=== PATIENT | female | born 1975 | race African-American/Black ===

== ENCOUNTER 2020-12-16 15:00 | Emergency (ER) | payer SELFPAY ==
[~2020-12-16] VITALS: Ht 172.7 cm; Wt 91.0 kg
[2020-12-16] MEDS ORDERED: HALOPERIDOL LACTATE 5MG/ML VIAL IM STA ×2 (16:06→17:23)
[2020-12-16] MEDS ORDERED: LORAZEPAM 2MG/ML CPJ IM STA ×2 (16:06→17:23)
[2020-12-16 18:05] LABS: CHLORIDE 112 mEq/L (98-107)
[2020-12-16 18:06] LABS: BASOPHILS % 0.5 % (0.0-2.0); HEMATOCRIT. 36.7 % (36.0-48.0); HEMOGLOBIN. 12.5 g/dL (12.0-16.0); LYMPHOCYTES % 21.9 % (20.0-50.0); MEAN CORPUSCULAR HEMOGLOBIN 30.9 pg (28.0-32.0); MEAN CORPUSCULAR VOLUME 91.3 fL (81.0-99.0); MEAN PLATELET VOLUME 8.9 fl (7.4-10.4); MONOCYTES % 8.3 % (2.0-8.0); NEUTROPHILS % 69.3 % (40.0-76.0); PLATELET 291 x1000/uL (130-400); RED BLOOD CELL COUNT 4.03 mill/uL (4.2-5.4); RED CELL DISTRIBUTION WIDTH 13.7 % (11.6-14.6)
[2020-12-16 18:08] LABS: ETHANOL BLOOD < 10 mg/dL
[2020-12-16 19:06] LABS: CLARITY URINE CLEAR (CLEAR); COLOR URINE DARK YELLOW (YELLOW); KETONES URINE 4+ (NEGATIVE); LEUKOCYTE ESTERASE URINE TRACE (NEGATIVE); NITRITE URINE NEGATIVE (NEGATIVE); OCCULT BLOOD URINE NEGATIVE (NEGATIVE); PROTEIN URINE 3+ (NEGATIVE); SPECIFIC GRAVITY URINE 1.037 (1.005-1.030)
[2020-12-16 19:21] LABS: *AMPHETAMINES SCREEN URINE NEGATIVE (NEGATIVE); METHADONE URINE SCREEN NEGATIVE (NEGATIVE); OPIATES URINE SCREEN NEGATIVE (NEGATIVE); PHENCYCLIDINE URINE SCREEN NEGATIVE (NEGATIVE)
[2020-12-16 19:22] LABS: *BARBITURATES SCREEN URINE NEGATIVE (NEGATIVE); *BENZODIAZEPINES SCREEN URINE NEGATIVE (NEGATIVE); *COCAINE SCREEN URINE NEGATIVE (NEGATIVE)
[2020-12-16 19:35] LABS: CANNABINOID URINE SCREEN PRESUMTIVE POSITIVE (NEGATIVE)
[2020-12-17 09:48] VITALS: BP 134/85
== END 2020-12-17 09:57 | disposition home or self-care (01) ==
LOC: EDBD 15:05 → ER 15:05
DX: G93.40 Encephalopathy, unspecified (principal); T40.7X1A Poisoning by cannabis (derivatives), accidental (unintentional), initial encounter; Y92.9 Unspecified place or not applicable
CPT/HCPCS: 36415; 80053; 80305; 80307; 80320; 80329; 81003; 85025; 93005; 96372; 99285; J1630; J2060; Z7610; G0480

== ENCOUNTER 2022-03-12 07:19 | Emergency (ER) | payer MEDICAID, MEDICARE ==
[~2022-03-12] VITALS: Ht 167.6 cm; Wt 73.0 kg
[2022-03-12 08:30] LABS: BASOPHILS % 0.7 % (0.0-2.0); EOSINOPHILS % 0.3 % (0.0-5.0); HEMATOCRIT. 36.8 % (36.0-48.0); LYMPHOCYTES % 22.6 % (20.0-50.0); MEAN CORPUSCULAR HEMOGLOBIN 29.7 pg (28.0-32.0); MEAN CORPUSCULAR VOLUME 91.2 fL (81.0-99.0); MONOCYTES % 7.3 % (2.0-8.0); NEUTROPHILS % 69.1 % (40.0-76.0); PLATELET 259 x1000/uL (130-400); RED BLOOD CELL COUNT 4.03 mill/uL (4.2-5.4); RED CELL DISTRIBUTION WIDTH 14.1 % (11.6-14.6)
[2022-03-12 08:35] LABS: CHLORIDE 108 mEq/L (98-107)
[2022-03-12 08:42] LABS: ETHANOL BLOOD < 10 mg/dL
[2022-03-12] MEDS ORDERED: OLANZAPINE 10 MG/VIAL IM ONE ×2 (08:45→16:00)
[2022-03-12] MEDS ORDERED: MIDAZOLAM HCL 2 MG/2 ML VIAL IM ONE ×3 (08:45→20:00)
[2022-03-12 15:37] LABS: CLARITY URINE CLEAR (CLEAR); COLOR URINE DARK YELLOW (YELLOW); KETONES URINE 2+ (NEGATIVE); LEUKOCYTE ESTERASE URINE NEGATIVE (NEGATIVE); NITRITE URINE NEGATIVE (NEGATIVE); OCCULT BLOOD URINE NEGATIVE (NEGATIVE); PH URINE 5.5 (4.5-8.0); PROTEIN URINE 2+ (NEGATIVE); SPECIFIC GRAVITY URINE 1.034 (1.005-1.030); UROBILINOGEN URINE 0.2 E.U./dL (0.2-1.0)
[2022-03-12] MEDS ORDERED: DIPHENHYDRAMINE 50MG/ML VIAL IM ONE (16:00)
[2022-03-12 16:14] LABS: *AMPHETAMINES SCREEN URINE NEGATIVE (NEGATIVE); *BARBITURATES SCREEN URINE NEGATIVE (NEGATIVE); *COCAINE SCREEN URINE NEGATIVE (NEGATIVE); METHADONE URINE SCREEN NEGATIVE (NEGATIVE); OPIATES URINE SCREEN NEGATIVE (NEGATIVE); PHENCYCLIDINE URINE SCREEN NEGATIVE (NEGATIVE)
[2022-03-12 16:19] LABS: *BENZODIAZEPINES SCREEN URINE PRESUMTIVE POSITIVE (NEGATIVE); CANNABINOID URINE SCREEN PRESUMTIVE POSITIVE (NEGATIVE)
[2022-03-12] MEDS ORDERED: DIAZEPAM 5 MG/ML 2ML CPJ IM ONE (17:00)
[2022-03-12] MEDS ORDERED: ZIPRASIDONE MESYLATE 20MG/VIAL IM ONE (20:00)
[2022-03-12] MEDS: RISPERIDONE 1MG TABLET PO SCH (21:38)
[2022-03-12] MEDS ORDERED: HALOPERIDOL LACTATE 5MG/ML VIAL IM ONE (23:30)
[2022-03-13] MEDS ORDERED: HALOPERIDOL LACTATE 5MG/ML VIAL IM ONE (02:45)
[2022-03-13] MEDS: RISPERIDONE 1MG TABLET PO SCH ×2 (09:00→21:00)
[2022-03-13] MEDS ORDERED: LORAZEPAM 2MG/ML CPJ IM NR (13:00)
[2022-03-13] MEDS: DIPHENHYDRAMINE 50MG/ML VIAL IM NR ×2 (16:04→17:54)
[2022-03-13] MEDS: HALOPERIDOL LACTATE 5MG/ML VIAL IM NR ×2 (16:04→17:54)
[2022-03-13] MEDS ORDERED: DIPHENHYDRAMINE 50MG/ML VIAL ONE (17:49)
[2022-03-14] MEDS: RISPERIDONE 1MG TABLET PO SCH (08:44)
[2022-03-14 13:32] VITALS: BP 122/75
== END 2022-03-14 13:33 ==
LOC: ER 07:19
DX: F23 Brief psychotic disorder (principal); R45.851 Suicidal ideations; F12.10 Cannabis abuse, uncomplicated; Z20.822 Contact with and (suspected) exposure to COVID-19; Z78.1 Physical restraint status; Z75.1 Person awaiting admission to adequate facility elsewhere
CPT/HCPCS: 36415; 80053; 80305; 80320; 81003; 81025; 85025; 96372; 99285; C9803; J1200; J1630; J2250; J3486; J3490; U0003; U0005; G0480